=== PATIENT | male | born 1980 | race Caucasian/White ===

== ENCOUNTER 2023-01-30 13:01 | Emergency (ER) | payer OTHER, SELFPAY ==
--- NOTE | ~2023-01-30 | CT_ITS ---
Examination: CT brain and CT cervical spine without contrast. CLINICAL INDICATION: Fall with head strike. COMPARISON: None. TECHNIQUE: Axial 5 mm thin and reformatted 2 mm thin sagittal coronal images of brain were obtained without contrast. Subsequently axial 3 mm thin and reformatted 2 minutes thin sagittal coronal images of cervical spine were obtained without contrast. DLP [id number]. This CT examination was performed using dose optimization technique as appropriate, variously including the following: Automated exposure control Adjustment of MA and/or KV according to patient size(this includes techniques or standardized protocols for targeted exams where dose is matched to indication/reason for exam; extremities or head. Use of iterative reconstruction techniques. FINDINGS: BRAIN: There is no acute intra-axial, extra-axial bleed, masses or midline shift. There is no acute infarction in evolution. There is no edema. The bello to white matter differentiation is maintained normal. The lateral ventricles are significantly enlarged. Bone windows reveal no calvarial abnormality. There is no scalp soft tissue abnormality. Bilateral paranasal sinuses and mastoid air cells are well-aerated. CERVICAL SPINE: There is mild straightening of cervical lordosis. The vertebral heights, alignment and disc heights are normal. The craniovertebral junction and C1-C2 alignment is normal. CT/CT cervical spine wo IV con IMPRESSION: No acute intracranial process seen. Significant ventriculomegaly.
--- NOTE | ~2023-01-30 | CT_ITS ---
Examination: CT brain and CT cervical spine without contrast. CLINICAL INDICATION: Fall with head strike. COMPARISON: None. TECHNIQUE: Axial 5 mm thin and reformatted 2 mm thin sagittal coronal images of brain were obtained without contrast. Subsequently axial 3 mm thin and reformatted 2 minutes thin sagittal coronal images of cervical spine were obtained without contrast. DLP 1275. This CT examination was performed using dose optimization technique as appropriate, variously including the following: Automated exposure control Adjustment of MA and/or KV according to patient size(this includes techniques or standardized protocols for targeted exams where dose is matched to indication/reason for exam; extremities or head. Use of iterative reconstruction techniques. FINDINGS: BRAIN: There is no acute intra-axial, extra-axial bleed, masses or midline shift. There is no acute infarction in evolution. There is no edema. The bello to white matter differentiation is maintained normal. The lateral ventricles are significantly enlarged. Bone windows reveal no calvarial abnormality. There is no scalp soft tissue abnormality. Bilateral paranasal sinuses and mastoid air cells are well-aerated. CERVICAL SPINE: There is mild straightening of cervical lordosis. The vertebral heights, alignment and disc heights are normal. The craniovertebral junction and C1-C2 alignment is normal. CT/CT head/brain wo IV con IMPRESSION: No acute intracranial process seen. Significant ventriculomegaly.
--- NOTE | 2023-01-30 13:00 | PC.NURSE ---
pt being beligerant to staff, security called, pt assisted to CT scan with security
[2023-01-30 13:21] VITALS: BP 137/58; BP 144/90; PULSE 66; PULSE 80; RESP 18; TEMP 36.4; O2SAT 92; O2SAT 95; BMI 27.7
--- NOTE | 2023-01-30 13:24 | ED_ITS ---
HPI - Fall General Chief Complaint: Fall Stated Complaint: FALL W/HEAD STRIKE,-LOC,-THINNERS,+CCOLLAR PER EMS Time Seen by Provider: 01/30/23 13:04 History of Present Illness HPI Narrative: Patient is a 42-year-old male with a long history of alcohol abuse and heroin abuse. Was going to detox. When patient fell while trying to get out of a car. Patient admits to drinking alcohol earlier in the day. Used 2 bags of heroin earlier in the day. Patient in fact was trying to go to [facility] [place] detox facility. He denies any suicidal homicidal ideations. Related Data Allergies Allergy/AdvReac Type Severity Reaction Status Date / Time No Known Allergies Allergy Verified 01/30/23 13:19 Review of Systems Review of Systems: No fever no chills no cough or congestion hungry no vomiting no focal weakness. Patient not on blood thinners. Yes all other systems are reviewed and are negative PMFSH Past Medical History Attestation statement: The following information was validated with the patient. Medical History (Updated 01/30/23 @ 15:57 by Anne Alvarado MD) ETOH abuse Polysubstance (excluding opioids) dependence Social History Social History Alcohol intake: current Alcohol intake frequency: other Alcohol type: hard liquor Smoked in Last 30 Days: No Use of substances other than those prescribed or required for medical reasons: Yes Substance Use Type: Heroin Advance Directives: No Physical Exam Vital Signs: Vital Signs: Last Vital Signs Temp 97.6 F 01/30/23 13:21 Pulse 66 01/30/23 13:21 Resp 16 01/30/23 14:00 BP 144/90 H 01/30/23 13:21 Pulse Ox 92 01/30/23 13:21 O2 Del Method Room Air 01/30/23 13:21 BMI result Body Mass Index 27.7 Appearance: Alert. Oriented X3. No acute distress. Eyes: Pupils equal, round and reactive to light. ENT: Pharynx normal. Neck: Normal inspection. Neck supple. No lymph nodes noted. No crepitus CVS: Normal heart rate and rhythm. Pulses normal. Normal S1 and S2 Respiratory: No respiratory distress. Breath sounds normal. No Wheezing. No rales Abdomen: Soft and nontender. No rigidity. No distention. good BS x4 Skin: Skin warm and dry. Normal skin color. Normal skin turgor. Extremities: No lower extremity edema. Neurovascular intact to all extremities. No Lacerations. No Rash Neuro: Oriented X 3. No motor deficit. No sensory deficit. Moving all extermities. No slurred speech Medical Decision Making Medical Decision Making [facility] Narrative: Patient is status post fall. CT scan of the head and C-spine were both negative for any acute evidence of bleeding. No fracture. No malalignment noted. Patient admits to drinking admits to using heroin. Monitor in the emergency department for 2 hours. No respiratory depression was noted. Patient has a place at [facility] [place] local detox place. Substance abuse coach professional athletes was notified. Will take patient to detox. He is currently in stable condition. Patient wants to go to detox. Presents stable condition. Differential Diagnosis Differential Diagnoses: The differential diagnosis associated with the presentation includes Bleed, fracture, substance abuse Admission/Observation Consideration of admission/observation: Escalation of care including admission/observation considered Consult Healthcare Provider Management of the patient was discussed with: Hadoop Analyst Substance abuse coach professional athletes Lab Data [facility] Lab Attestation statement: I reviewed the patient's lab results. Independent Interpretation I performed an independent interpretation of an: CT Scan Interpretation: CT scan of the head was grossly negative Radiology Impression Discussion of test interpretation with radiology: I have reviewed the radiologist's reading. Independent Historian Clinical information obtained from an independent historian. History obtained from or confirmed by: EMS Discharge Plan Discharge Clinical Impression: Head injury, Active substance abuse Instructions: Head Injury (ED), Polysubstance Abuse (ED) Referrals: Physician,Unknown J [Primary Care Provider] - (Please go to detox right now.)
--- NOTE | 2023-01-30 13:47 | MHC.EDTECH ---
attempted blood draw, and patient became angry and swearing. refused blood draw.
[2023-01-30 14:00] VITALS: RESP 16
--- NOTE | 2023-01-30 14:10 | PC.NURSE ---
pt given PO with OK by provider
--- NOTE | 2023-01-30 14:23 | PC.NURSE ---
contacted gymnastic coach-EM who put me in contact with Lalit Luke. Lalit stated when the patient is cleared from the CT scan that they will set up a Lyft back to [facility]. Notified patients nurse-Shayna and also told provider.
--- NOTE | 2023-01-30 16:14 | MHC.RECOVSUP ---
T/W reached out to [facility] to confirm we can send pt back for ATS.
--- NOTE | 2023-01-30 17:24 | PC.NURSE ---
this nurse has been in contact with the student success coach who was waiting on an ok from [facility] to send this patient, pts discharge is up, pt yelling in the hallway and calling somebody on his phone to come pick him up, pt left without going to [facility] and left without discharge paperwork.
--- NOTE | 2023-01-30 17:30 | MHC.RECOVSUP ---
? Reason for consult Recovery support [facility] Identified substance use concern: Alcohol - Seeking ATS (detox) - Support ? Intervention: <del>o</del> <del>ATS</del> <del>bed</del> <del>search</del> <del>started/completed/in</del> <del>process</del> <del>o</del> <del>MAT</del> <del>started</del> <del>or</del> <del>to</del> <del>be</del> <del>started</del> <del>o</del> <del>Community</del> <del>resources</del> <del>provided</del> <del>o</del> <del>Harm</del> <del>reduction</del> <del>discussion</del> ? Plan: <del>o</del> <del>Referral</del> <del>to</del> <del>[facility]</del> <del>o</del> <del>Bed</del> <del>search</del> <del>in</del> <del>progress</del> <del>to</del> <del>o</del> <del>Follow</del> <del>up</del> <del>tomorrow</del> <del>o</del> <del>Patient</del> <del>awaiting</del> <del>crisis</del> <del>evaluation</del> <del>o</del> <del>Patient</del> <del>to</del> <del>follow</del> <del>up</del> <del>with</del> <del>[facility]</del> <del>after</del> <del>discharge</del> ? Additional information: patient was seeking ATS Had a bed pending at [facility] But left AMA.
== END 2023-01-30 17:29 | disposition home or self-care (01) ==
PROVIDERS: Emergency Provider Emergency Medicine Emergency Medical Services
DX: S09.90XA Unspecified injury of head, initial encounter (principal); V48.4XXA Person boarding or alighting a car injured in noncollision transport accident, initial encounter; F10.10 Alcohol abuse, uncomplicated; F19.20 Other psychoactive substance dependence, uncomplicated; Y93.89 Activity, other specified; Y92.481 Parking lot as the place of occurrence of the external cause; Y99.9 Unspecified external cause status
CPT/HCPCS: 70450; 72125; 99284